=== PATIENT | male | born 1990 | race Caucasian/White ===

== ENCOUNTER 2020-11-27 09:05 | Outpatient (REF) | payer OTHER, SELFPAY ==
[2020-11-27 10:53] LABS: Alanine Aminotransferase 42 U/L (0-40); Albumin Level 4.3 g/dL (3.5-5.0); Alkaline Phosphatase 79 U/L (39-117); Anion Gap 13 (12-20); Aspartate Amino Transferase 23 U/L (5-37); Bilirubin Total 1.1 mg/dL (0.0-1.0); Blood Urea Nitrogen 13 mg/dL (9-16); Calcium 9.4 mg/dL (8.4-10.2); Carbon Dioxide 27 mmol/L (22-29); Chloride 104 mmol/L (96-108); Cholesterol 155 mg/dL; Estimated Glomerular Filt Rate > 60; Glucose Fasting 92 mg/dL (60-99); HDL Cholesterol 37 mg/dL; LDL Cholesterol Calculated 102 mg/dl; Sodium 140 mmol/L (135-145); Total Protein 7.3 g/dL (6.5-8.0); Triglycerides 82 mg/dL
[2020-12-01 14:06] LABS: Vitamin D 25-OH, D2 <4 ng/mL; Vitamin D 25-OH, D3 23 ng/mL; Vitamin D 25-OH, Total 23 ng/mL (30-100)
== END 2020-11-27 09:06 | disposition home or self-care (01) ==
LOC: HO.LAB 09:05
PROVIDERS: PCP Internal Medicine; Visit Provider Internal Medicine
DX: E11.9 Type 2 diabetes mellitus without complications (principal); E55.9 Vitamin D deficiency, unspecified; Z83.3 Family history of diabetes mellitus
CPT/HCPCS: 36415; 80053; 80061; 82306

== ENCOUNTER 2022-06-23 09:18 | Outpatient (REF) | payer OTHER, SELFPAY ==
[2022-06-23 09:41] LABS: MANUAL DIFF FLAG NO
[2022-06-23 09:54] LABS: Basophils Percent Auto 0.2 % (0-2); Eosinophils Percent Auto 0.5 % (0-4); Hematocrit 43.5 % (42.0-52.0); Hemoglobin 14.7 g/dl (14.0-18.0); Imm Gran Abs Auto 0.01 X10*3/uL (0.00-0.03); Imm Gran Pct Auto 0.2 % (0.0-0.4); Lymphocytes Absolute Auto 1.9 X10*3/uL (1.2-4.9); Lymphocytes Percent Auto 34.3 % (20-40); Mean Corpuscular HGB Conc 33.8 g/dl (31.0-36.0); Mean Corpuscular Hemoglobin 29.8 pg (27.0-33.0); Mean Corpuscular Volume 88.1 fL (80.0-98.0); Monocytes Absolute Auto 0.6 X10*3/uL (0.1-1.2); Monocytes Percent Auto 10.5 % (2-11); Neutrophils Absolute Auto 3.1 x10*3/uL (2.0-8.3); Neutrophils Percent Auto 54.3 % (45-73); Platelet Count 362 X10*3/uL (160-400); Red Blood Count 4.94 X10*6/uL (4.60-5.80); Red Cell Distribution Width 12.5 % (11.0-16.0); White Blood Count 5.6 X10*3/uL (4.8-10.8)
[2022-06-23 10:28] LABS: Alanine Aminotransferase 37 U/L (0-40); Albumin Level 4.4 g/dL (3.5-5.0); Alkaline Phosphatase 89 U/L (39-117); Anion Gap 14 (12-20); Aspartate Amino Transferase 21 U/L (5-37); Bilirubin Total 0.9 mg/dL (0.0-1.0); Blood Urea Nitrogen 13 mg/dL (9-16); Calcium 9.6 mg/dL (8.4-10.2); Carbon Dioxide 25 mmol/L (22-29); Chloride 104 mmol/L (96-108); Cholesterol 186 mg/dL; Estimated Glomerular Filt Rate > 60; Glucose Fasting 96 mg/dL (60-99); HDL Cholesterol 36 mg/dL; LDL Cholesterol Calculated 136 mg/dl; Potassium 4.4 mmol/L (3.3-5.1); Sodium 139 mmol/L (135-145); Total Protein 7.8 g/dL (6.5-8.0); Triglycerides 74 mg/dL
[2022-06-23 10:51] LABS: Thyroid Stimulating Hormone 1.12 uIU/mL (0.32-4.0); Vitamin D 25-OH Total 23.4 ng/mL (>30)
[2022-06-25 16:31] LABS: Lyme Abs Screen <0.90 index
== END 2022-06-23 09:19 | disposition home or self-care (01) ==
LOC: HO.LAB 09:18
PROVIDERS: PCP Internal Medicine; Visit Provider Internal Medicine
DX: Z00.00 Encounter for general adult medical examination without abnormal findings (principal); M25.50 Pain in unspecified joint; E55.9 Vitamin D deficiency, unspecified; E66.9 Obesity, unspecified; E78.5 Hyperlipidemia, unspecified
CPT/HCPCS: 36415; 80053; 80061; 82306; 84443; 85025; 86617; 86618

== ENCOUNTER 2023-03-16 08:20 | Outpatient (AMB) | payer OTHER, SELFPAY ==
--- NOTE | 2023-03-16 08:25 | A.OFFPC_ITS ---
Vital Signs 03/16/23 08:27 Height 5 ft 10 in Weight 224 lb BMI 32.1 BP 122/80 Blood Pressure Location Lt brachial Position Sitting Intake Visit Reasons: physical exam Intake Note: Patient here for an annual physical exam, routine lab request Square Shear Operator Required: No Accompanied by: Self / Same As Patient Allergies Sulfa (Sulfonamide Antibiotics) Allergy (Intermediate, Verified 03/16/23 08:45) swollen Medication List - Last Reconciled 03/16/23 by Chelsea Conrad MD bupropion HCl 300 mg PO QAM cholecalciferol (vitamin D3) 50 mcg PO DAILY Tobacco use date assessed: 03/16/23 Dental Screening Dental Screen Date: 03/16/23 Did you have a dental visit in the last 12 months?: Yes Did you have a dental problem in the last 6 months where you did not have access to dental care?: No Was dental information given to patient?: Patient has dentist HPI HPI Comments History of Present Illness Details This is a 32-year-old male with mild recurrent major depression that comes for his physical exam. Depression stable with bupropion. Denies any chest pain or shortness of breath. No fever or cough. [facility] Medical History Asperger syndrome Family history of diabetes mellitus Hypovitaminosis D Obese Surgical History No pertinent past surgical history Family History Father Diabetes Mother No problems noted. Maternal Grandmother Cancer Maternal Grandfather Colon cancer Maternal Uncle Stomach cancer Maternal Uncle Colon cancer Paternal Uncle No problems noted. Family/Other FH: mental illness Social History Housing: Apartment Alcohol intake: never Patient Tobacco Use Status: Never used Tobacco e-Cigarette/Vaping Use: Never Used Second Hand Smoke Exposure: No service: No Current occupational status: unemployed Cognitive needs: No Hearing needs: No Vision needs: No Questionnaire PHQ-9 Over the last 2 weeks, how often have you been bothered by any of the following problems? 1. Little interest or pleasure in doing things: not at all 2. Feeling down, depressed, or hopeless: not at all 3. Trouble falling or staying asleep, or sleeping too much: not at all 4. Feeling tired or having little energy: not at all 5. Poor appetite or overeating: not at all 6. Feeling bad about yourself - or that you are a failure or have let yourself or your family down: not at all 7. Trouble concentrating on things, such as reading the newspaper or watching television: not at all 8. Moving or speaking so slowly that other people could have noticed. Or the opposite - being so fidgety or restless that you have been moving around a lot more than usual: not at all 9. Thoughts that you would be better off or of hurting yourself in some way: not at all Total score: 0 Depression Screening Interpretation: Negative [id number] - PHQ-9 Billing: Yes Source: Developed by Drs. Tyrel Núñez, Abbi Ruiz, Neil Verde and colleagues, with an educational rosendo from [employer]. Thrive Questionnaire Date Thrive assessed: 03/16/23 I am a: Patient What is your living situation today?: I have a steady place to live Within the past 12 months, did the food you bought not last and you didn't have the money to get more?: Never true Within the past 12 months, did you worry whether your food would run out before you got money to buy more?: Never true Do you have trouble paying for medicines?: No Do you have trouble getting transportation to medical appointments?: No Do you have trouble paying your heating and electricity bill?: No Do you have trouble taking care of your child, family member or friend?: No Do you have trouble with day-to-day activities such as bathing, preparing meals, shopping, managing finances, etc.?: No Are you currently unemployed and looking for a job?: No Are you interested in more education?: No Please select the resources that you would like help with: None Currently or been in a relationship where the following occur: no concerns reported AUDIT C Alcohol Use Questionnaire (AUDIT-C) 1. How often do you have a drink containing alcohol?: Never Total Score: 0 Score Reviewed/Action Taken: No ANDREA-7 AMB Questionnaire ANDREA-7 Date ANDREA - 7 assessed: 02/17/22 Source: Developed by Drs. Tyrel Núñez, Abbi Ruiz, Neil Verde and colleagues, with an educational rosendo from [employer]. Review of Systems Const All systems reviewed & are unremarkable except as noted in HPI and below Eyes Reports no additional complaints, Denies change in vision and Denies other visual disturbances Card Denies chest pain at rest, Denies chest pain with activity, Denies edema, Denies irregular heart rhythm, Denies claudication, Denies dyspnea, Denies dyspnea on exertion, Denies orthopnea, Denies paroxysmal nocturnal dyspnea and Denies slow heart rate Resp Denies cough, Denies dyspnea and Denies dyspnea on exertion GI Denies abdominal pain, Denies change in bowel habits, Denies excessive flatus, Denies nausea and Denies vomiting Denies urinary hesitancy, Denies urinary incontinence and Denies urinary urgency Musc Denies abnormal gait, Denies atrophy, Denies deformity and Denies limited range of motion Skin/Breast Denies bleeding lesions, Denies changing lesions and Denies rash Neuro Denies abnormal gait and Denies lack of coordination Physical exam (Primary Care) Vital Signs: Last Vital Signs BP 122/80 03/16/23 08:27 BMI result Body Mass Index 32.1 Tobacco/Smoking Status: Tobacco use Status Tobacco use date assessed 03/16/23 03/16/23 08:33 Patient Tobacco Use Status Never used Tobacco 03/16/23 08:33 e-Cigarette/Vaping Use Never Used 03/16/23 08:33 PHQ-9: PHQ-9 Score PHQ-9: Total score 0 03/16/23 08:33 Depression Screening Interpretation: Negative Thrive Assessment: Date of Thrive Assessment Date Thrive assessed 03/16/23 03/16/23 08:33 Currently or been in a relationship where the following occur: no concerns reported Const Orientation/consciousness: patient oriented x3 HENMT Head: Yes normal to inspection, Yes normocephalic and Yes atraumatic Ears: external ears normal Eyes General: appearance normal, both eyes and all related structures Eyelids: Yes eyelids normal Conjunctivae: conjunctivae normal Neck Neck: Yes normal visual inspection and Yes supple Resp Effort & Inspection: normal respiratory effort Auscultation: clear to auscultation bilaterally Cardio Jugular venous distension: no JVD Rate: regular rate Rhythm: regular rhythm Heart sounds: S1 normal heart sound present and S2 normal heart sound present GI Inspection: Yes normal to inspection Palpation (GI): Soft to palpation and nontender Auscultation: normal bowel sounds Skin General skin exam: no rashes or lesions noted Neuro General: patient oriented x3 and no focal motor deficits Extrem General: Yes full ROM Psych Appearance: grossly normal Assessment and Plan Assessment & Plan (1) Adult general medical exam: Code(s): Z00.00 - Encounter for general adult medical examination without abnormal findings Plan: Repeat in a year (2) Mild recurrent major depression: Code(s): F33.0 - Major depressive disorder, recurrent, mild Plan: Continue bupropion Orders: Orders Vitamin B12 and Folate Today E53.8 - Deficiency of other specified B group vitamins Comprehensive [place]. Panel Fast Today Z00.00 - Encounter for general adult medical examination without abnormal findings Lipid Panel Today Z00.00 - Encounter for general adult medical examination without abnormal findings Thyroid Stimulating Hormone Today E66.9 - Obesity, unspecified Vitamin D 25-OH Total Today E55.9 - Vitamin D deficiency, unspecified Complete Blood Count Auto Diff Today E66.9 - Obesity, unspecified Coding Level of Care Code Est Pt Prev Care [id number]([id number]) Diagnoses Adult general medical exam Z00.00 Mild recurrent major depression F33.0 Time Spent (min) 30
[2023-03-16 08:27] VITALS: BP 122/80; BMI 32.1
== END 2023-03-16 08:52 | disposition home or self-care (01) ==
PROVIDERS: PCP Internal Medicine; Visit Provider Internal Medicine
DX: Z00.00 Encounter for general adult medical examination without abnormal findings (principal); F33.0 Major depressive disorder, recurrent, mild
CPT/HCPCS: 99395

== ENCOUNTER 2023-10-10 13:48 | Emergency (ER) | payer OTHER, SELFPAY ==
--- NOTE | ~2023-10-10 | US_ITS ---
EXAMINATION: US ABDOMEN LIMITED CLINICAL INFORMATION: Epigastric pain. Question cholecystitis.. COMPARISON: None available. TECHNIQUE: Real-time imaging of the gallbladder FINDINGS: GALLBLADDER: Normal. The gallbladder is physiologically distended without evidence of stones, sludge, polyps, wall thickening or pericholecystic fluid. COMMON BILE DUCT: Normal in caliber measuring 0.2 cm in diameter. US/US abdomen limited IMPRESSION: Normal gallbladder.
--- NOTE | ~2023-10-10 | XR_ITS ---
EXAMINATION: XR CHEST CLINICAL INFORMATION: Chest pain COMPARISON: None available. TECHNIQUE: Frontal view of the chest was obtained. FINDINGS: No significant abnormality is noted involving the heart, lungs, mediastinum, bony thorax or soft tissues. XR/XR chest 1V IMPRESSION: Unremarkable examination.
[2023-10-10 13:55] VITALS: BP 125/81; PULSE 75; RESP 17; TEMP 36.1; O2SAT 99; BMI 32.8
--- NOTE | 2023-10-10 14:02 | ECG_ITS ---
Test Reason : chest pain Blood Pressure : / mmHG Vent. Rate : 075 BPM Atrial Rate : 075 BPM P-R Int : 166 ms QRS Dur : 094 ms QT Int : 368 ms P-R-T Axes : 064 033 043 degrees QTc Int : 410 ms Normal sinus rhythm Normal ECG No previous ECGs available Referred By: Fantasma Ochoa Electronically Signed By:LIAT SAN
--- NOTE | 2023-10-10 14:04 | ED_ITS ---
HPI - General Adult General Chief complaint: General Medical Stated complaint: Abd pain, high BP Time Seen by Provider: 10/10/23 23:20 Source: patient, family and old records reviewed Mode of arrival: ambulatory Limitations: no limitations History of Present Illness HPI narrative: 33 yo male with depression, anxiety, aspergers was eating breakfast this AM when he decided to check his BS it was 160 and his BP was 140/80 he had no chest pain, shortness of breath. He did feel heart racing and checked it HR was 80s. He notes that he is stressed out about his father recently having a medical issue. This episode happened at 11am today. Due to recent stress decided to put himself back on wellbutrin this AM and took 300mg complaint: BS and BP issue Onset (ago): day(s) (today 11am ) Location: head and chest Radiation: non-radiation Severity: mild Relieving factors: none Exacerbating factors: none Associated symptoms: denies other symptoms Treatments prior to arrival: none Related Data Previous Rx's Medication Instructions Recorded cholecalciferol (vitamin D3) 50 50 mcg PO DAILY #90 caps 03/06/21 mcg (2,000 unit) capsule bupropion HCl 300 mg 24 hr tablet, 300 mg PO QAM #90 tabs 08/12/21 extended release Allergies Allergy/AdvReac Type Severity Reaction Status Date / Time Sulfa (Sulfonamide Allergy Intermediate swollen Verified 03/16/23 08:45 Antibiotics) Review of Systems 2 Review of Systems: Constitutional : No Fever, No Chills, No Fatigue ENT/Mouth : No sore throat, No Rhinorrhea Eyes: No Eye Pain, No Swelling, No Redness Cardiovascular : No Chest Pain, No SOB, No Dyspnea on Exertion, pos palps Respiratory : No Cough, No Sputum Gastrointestinal : No Nausea, No Vomiting, No Diarrhea, No abdominal Pain Genitourinary : No Dysuria, No Urinary Frequency, No Hematuria, Musculoskeletal : No joint pain, No Myalgias, No Joint Swelling Skin : No Skin Lesions, No rash Neuro : No Weakness, No Numbness, No Dizziness, no Headache Psych : No Anxiety/Panic, No Depression Heme/Lymph: No Bruising, No Bleeding,No Lymphadenopathy Endocrine : No Polyuria, No Polydipsia All other systems reviewed and are negative PMFSH Past Medical History Medical History Asperger syndrome Family history of diabetes mellitus Hypovitaminosis D Obese Surgical History No pertinent past surgical history Family History Family History Father Diabetes Mother No problems noted. Maternal Grandmother Cancer Maternal Grandfather Colon cancer Maternal Uncle Stomach cancer Maternal Uncle Colon cancer Paternal Uncle No problems noted. Family/Other FH: mental illness Social History Social History Housing: Apartment Alcohol intake: never Patient Tobacco Use Status: Never used Tobacco e-Cigarette/Vaping Use: Never Used Second Hand Smoke Exposure: No service: No Current occupational status: unemployed Cognitive needs: No Hearing needs: No Vision needs: No Physical Exam ED Vital Signs: Vital Signs - 24 hr 10/10/23 13:55 10/10/23 19:13 Temperature 97.0 F 96.8 F Pulse Rate 75 73 Respiratory Rate 17 18 Blood Pressure 125/81 130/83 Pulse Oximetry 99 98 Oxygen Delivery Method Room Air Room Air BMI result Body Mass Index 32.8 Appearance: Alert. Oriented X3. No acute distress. Eyes: Pupils equal, round and reactive to light. ENT: Pharynx normal. Neck: Normal inspection. Neck supple. CVS: Normal heart rate and rhythm. Pulses normal. Respiratory: No respiratory distress. Breath sounds normal. Abdomen: Soft and non-tender. Skin: Skin warm and dry. Normal skin color. Normal skin turgor. Extremities: No lower extremity edema. no calf ttp Neuro: Oriented X 3. No motor deficit. No sensory deficit. Course Course Course Narrative: RME: 33-year-old male presents ED for epigastric and chest pain since last night with some nausea. Patient denies any shortness of breath, leg swelling, calf pain, coughing up blood, fever, chills, or trauma. EKG, labs, chest x-ray, and ultrasound ordered. Medical Decision Making Medical Decision Making MDM Narrative: 33 yo male with PMH of depression, anxiety, asperger notes a medical issue just happened with his dad so he is worried - this AM was eating breakfast and checked his BS it was 160 and BP was 140 he had no symptoms. His heart was racing but he checked it and it was 80s. He did start wellbutrin today and it has been a while since he took it - started it at 300mg. At this time labs, EKG, trop, BS and BP normal, US normal for triage, exam benign. Will tell him to hold his wellbutrin and call his PCP in AM. Doubt ACS, diabetes, he is PERC negative doubt VTE. Suspect med or stress reaction Differential Diagnosis Differential Diagnoses: The differential diagnosis associated with the presentation includes med or stress reaction Admission/Observation Consideration of admission/observation: Escalation of care including admission/observation considered work up negative well butrin taken over 12 hours ago VS stable, EKG normal can be DC home Lab Data MDM Lab Attestation statement: I reviewed the patient's lab results. 10/10/23 16:11 10/10/23 16:11 Labs: Lab Results 10/10/23 10/10/23 Range/Units 16:11 19:17 WBC 6.9 (4.8-10.8) X10*3/uL RBC 5.19 (4.60-5.80) X10*6/uL Hgb 15.8 (14.0-18.0) g/dl Hct 45.7 (42.0-52.0) % MCV 88.1 (80.0-98.0) fL MCH 30.4 (27.0-33.0) pg MCHC 34.6 (31.0-36.0) g/dl RDW 12.7 (11.0-16.0) % Plt Count 316 (160-400) X10*3/uL MPV 9.3 L (9.4-12.4) fL Immature Gran % (Auto) 0.3 (0.0-0.4) % Neut % (Auto) 63.1 (45-73) % Lymph % (Auto) 26.4 (20-40) % [place] % (Auto) 9.1 (2-11) % Eos % (Auto) 1.0 (0-4) % Baso % (Auto) 0.1 (0-2) % Lymph # (Auto) 1.8 (1.2-4.9) X10*3/uL [place] # (Auto) 0.6 (0.1-1.2) X10*3/uL Eos # (Auto) 0.1 (0.0-0.4) X10*3/uL Baso # (Auto) 0.0 (0.0-0.2) X10*3/uL Abs Immat Gran (auto) 0.02 (0.00-0.03) X10*3/uL Absolute Neuts (auto) 4.4 (2.0-8.3) x10*3/uL Absolute Nucleated RBC 0.000 (0.0-0.012) X10*3/uL Nucleated RBC % (auto) 0.0 (0.0-0.2) /100WBC PT 12.2 (11.1-13.3) SEC INR 1.0 (0.9-1.1) APTT 32.8 (26.0-36.8) SEC Sodium 139 (135-145) mmol/L Potassium 3.8 (3.3-5.1) mmol/L Chloride 105 (96-108) mmol/L Carbon Dioxide 26 (22-29) mmol/L Anion Gap 12 (12-20) BUN 14 (9-16) mg/dL Creatinine 1.04 (0.5-1.4) mg/dL Estim Creat Clear Calc 127.9 Estimated GFR > 60 POC Glucose 112 (60-115) mg/dL Random Glucose 88 (60-115) mg/dL Calcium 9.7 (8.4-10.2) mg/dL Total Bilirubin 0.7 (0.0-1.0) mg/dL AST 19 (5-37) U/L ALT 41 H (0-40) U/L Alkaline Phosphatase 90 (39-117) U/L Troponin I High Sens < 2.7 (<3.5-35.0) ng/L Total Protein 8.3 H (6.5-8.0) g/dL Albumin 4.5 (3.5-5.0) g/dL Lipase 12 (8-78) U/L Urine Color Dark Yellow Urine Appearance Clear Urine pH 6.5 (5.0-9.0) Ur Specific [place] >= 1.030 H (1.005-1.025) Urine Protein Trace (Neg-Trace) mg/dL Urine Glucose (UA) Negative (Negative) mg/dL Urine Ketones Trace (Negative) mg/dL Urine Blood Negative (Negative) Urine Nitrite Negative (Negative) Ur Leukocyte Esterase Negative (Negative) Independent Interpretation I performed an independent interpretation of an: EKG, Plain X-Ray (normal ) and Ultrasound (no acute findings) Interpretation: Rate: 75 Rhythm: NSR [place]: normal Normal P waves. Normal DIANE. Normal QRS complex. ST T wave : normal no LOIS qTC: normal prior studies: no acute ischemia The study has been interpreted contemporaneously by me. . Radiology Impression Discussion of test interpretation with radiology: I have reviewed the radiologist's reading. Independent Historian Clinical information obtained from an independent historian. History obtained from or confirmed by: Parent External Record Review External record reviewed: Inpatient record Discharge Plan Discharge Clinical Impression: Stress reaction Patient Disposition: Home, Self-Care Instructions: Stress (ED) Additional Instructions: your labs were normal including chest xray, ultrasound of abdomen, ekg - please talk to your doctor about restarting wellbutrin. starting at 300mg is too high. call in the AM return for any worsening symptoms or concerns. your blood pressure has been stable and normal here. dario an?lisis fueron normales, incluida la radiograf?a de t?rax, la ecograf?a del abdomen y el electrocardiograma; hable con burrell m?dico sobre la posibilidad de reiniciar Wellbutrin. comenzar con 300 mg es demasiado alto. llama por la ma?chelsea Regrese si tiene alg?n s?ntoma o inquietud que empeore. Burrell presi?n arterial ledbetter estado estable y normal aqu?. Prescriptions: No Action cholecalciferol (vitamin D3) 50 mcg (2,000 unit) capsule 50 mcg PO DAILY Qty: 90 0RF bupropion HCl 300 mg tablet extended release 24 hr 300 mg PO QAM Qty: 90 2RF Interventions: ED Discharge Assessment Last Done: 10/11/23 00:05 Discharge Date/Time: 10/11/23 00:08 Print Language: Syriac
[2023-10-10 16:29] LABS: MANUAL DIFF FLAG NO
[2023-10-10 16:31] LABS: Appearance Urine Clear; Color Urine Dark Yellow; Glucose Urine UA Negative (Negative); Leukocyte Esterase Urine Negative (Negative); Nitrite Urine Negative (Negative); PH 6.5 (5.0-9.0); Specific Gravity - Urine >= 1.030 (1.005-1.025); Urine Blood Negative (Negative); Urine Ketones Trace mg/dL (Negative); Urine Protein Trace mg/dL (Neg-Trace)
[2023-10-10 16:36] LABS: Basophils Percent Auto 0.1 % (0-2); Eosinophils Absolute Auto 0.1 X10*3/uL (0.0-0.4); Hematocrit 45.7 % (42.0-52.0); Hemoglobin 15.8 g/dl (14.0-18.0); Imm Gran Abs Auto 0.02 X10*3/uL (0.00-0.03); Imm Gran Pct Auto 0.3 % (0.0-0.4); Lymphocytes Absolute Auto 1.8 X10*3/uL (1.2-4.9); Lymphocytes Percent Auto 26.4 % (20-40); Mean Corpuscular HGB Conc 34.6 g/dl (31.0-36.0); Mean Corpuscular Hemoglobin 30.4 pg (27.0-33.0); Mean Corpuscular Volume 88.1 fL (80.0-98.0); Mean Platelet Volume 9.3 fL (9.4-12.4); Monocytes Absolute Auto 0.6 X10*3/uL (0.1-1.2); Monocytes Percent Auto 9.1 % (2-11); Neutrophils Absolute Auto 4.4 x10*3/uL (2.0-8.3); Neutrophils Percent Auto 63.1 % (45-73); Platelet Count 316 X10*3/uL (160-400); Prothrombin Time 12.2 SEC (11.1-13.3); Red Blood Count 5.19 X10*6/uL (4.60-5.80); Red Cell Distribution Width 12.7 % (11.0-16.0); White Blood Count 6.9 X10*3/uL (4.8-10.8)
[2023-10-10 16:38] LABS: Partial Thromboplastin Time 32.8 SEC (26.0-36.8)
[2023-10-10 16:43] LABS: Alanine Aminotransferase 41 U/L (0-40); Albumin Level 4.5 g/dL (3.5-5.0); Alkaline Phosphatase 90 U/L (39-117); Anion Gap 12 (12-20); Aspartate Amino Transferase 19 U/L (5-37); Bilirubin Total 0.7 mg/dL (0.0-1.0); Blood Urea Nitrogen 14 mg/dL (9-16); Calcium 9.7 mg/dL (8.4-10.2); Carbon Dioxide 26 mmol/L (22-29); Chloride 105 mmol/L (96-108); Creatinine Clr Calc Pharmacy 127.9; Estimated Glomerular Filt Rate > 60; Glucose Random 88 mg/dL (60-115); Lipase 12 U/L (8-78); Potassium 3.8 mmol/L (3.3-5.1); Sodium 139 mmol/L (135-145); Total Protein 8.3 g/dL (6.5-8.0)
[2023-10-10 16:52] LABS: Troponin-I High Sensitivity < 2.7 ng/L (<3.5-35.0)
[2023-10-10 19:13] VITALS: BP 130/83; PULSE 73; RESP 18; TEMP 36; O2SAT 98
[2023-10-10 19:23] LABS: Glucose, Whole Blood 112 mg/dL (60-115)
[2023-10-11] VITALS: BP 121/79; PULSE 60; RESP 16; TEMP 36.3; O2SAT 95
== END 2023-10-11 00:08 | disposition home or self-care (01) ==
PROVIDERS: Physician Assistant; Emergency Provider Emergency Medicine; PCP Internal Medicine
DX: F43.0 Acute stress reaction (principal); R10.9 Unspecified abdominal pain; R10.13 Epigastric pain; R07.89 Other chest pain; R11.2 Nausea with vomiting, unspecified; Z79.899 Other long term (current) drug therapy
CPT/HCPCS: 36415; 71045; 76705; 80053; 81003; 82947; 83690; 84484; 85025; 85610; 85730; 93005; 99284

== ENCOUNTER → 2023-10-10 14:02 | Outpatient (BNV) | payer OTHER, SELFPAY | PROVIDERS: Emergency Provider Emergency Medicine; PCP Internal Medicine; Visit Provider Internal Medicine | DX: R07.9 Chest pain, unspecified (principal) | CPT/HCPCS: 93010 ==

== ENCOUNTER 2023-10-19 12:26 | Outpatient (AMB) | payer OTHER, SELFPAY ==
--- NOTE | 2023-10-19 12:37 | A.OFFPC_ITS ---
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 Accompanied by: Mother Allergies Sulfa (Sulfonamide Antibiotics) Allergy (Intermediate, Verified 10/19/23 12:47) swollen Medication List - Last Reconciled 10/19/23 by Chelsea Conrad MD bupropion HCl 300 mg PO QAM cholecalciferol (vitamin D3) 50 mcg PO DAILY Tobacco use date assessed: 10/19/23 Dental Screening Dental Screen Date: 10/19/23 Did you have a dental visit in the last 12 months?: No Did you have a dental problem in the last 6 months where you did not have access to dental care?: No Was dental information given to patient?: Patient has dentist HPI HPI Comments History of Present Illness Details This is a 33-year-old male with mild major depression and low vitamin-D that comes today accompanied by mother has hospital discharge follow-up with discharge date 10/10/2023 due to a stress reaction. He stop taking bupropion 300 mg few months ago and the past month he has been having a lot of stress due to many people sick around him and father had COVID-19 complications and was hospitalized for 15 days therefore he restarted to take the bupropion 300 mg and started to have headaches, abdominal pain blood pressure elevated to 140/80 and blood sugar elevated to 160 as well as chest pain. Currently he does not take bupropion and feels markedly improved. Has new counselor and is on a waiting list to see Psychiatry. I will restart him on bupropion 150 mg once a day. On vitamin-D supplements for his low vitamin-D. [facility] Medical History (Updated 10/19/23 @ 13:11 by Chelsea Conrad MD) Obese Family history of diabetes mellitus Hypovitaminosis D Asperger syndrome Surgical History No pertinent past surgical history Family History Father Diabetes Mother No problems noted. Maternal Grandmother Cancer Maternal Grandfather Colon cancer Maternal Uncle Stomach cancer Maternal Uncle Colon cancer Paternal Uncle No problems noted. Family/Other FH: mental illness Social History Housing: Apartment Alcohol intake: never Patient Tobacco Use Status: Never used Tobacco e-Cigarette/Vaping Use: Never Used Second Hand Smoke Exposure: No service: No Current occupational status: unemployed Cognitive needs: No Hearing needs: No Vision needs: Yes Questionnaire PHQ-9 Over the last 2 weeks, how often have you been bothered by any of the following problems? 1. Little interest or pleasure in doing things: several days 2. Feeling down, depressed, or hopeless: several days 3. Trouble falling or staying asleep, or sleeping too much: not at all 4. Feeling tired or having little energy: not at all 5. Poor appetite or overeating: nearly every day 6. Feeling bad about yourself - or that you are a failure or have let yourself or your family down: not at all 7. Trouble concentrating on things, such as reading the newspaper or watching television: several days 8. Moving or speaking so slowly that other people could have noticed. Or the opposite - being so fidgety or restless that you have been moving around a lot more than usual: not at all 9. Thoughts that you would be better off or of hurting yourself in some way: not at all Total score: 6 Depression Screening Interpretation: Positive Depression Screening Follow-up: Existing condition and New Medication prescribed Depression Screening Done: Yes 78610 - PHQ-9 Billing: Yes Source: Developed by Drs. Tyrel Núñez, Abbi Ruiz, Neil Verde and colleagues, with an educational rosendo from [employer]. Thrive Questionnaire Date Thrive assessed: 10/19/23 I am a: Patient What is your living situation today?: I have a steady place to live Within the past 12 months, did the food you bought not last and you didn't have the money to get more?: Never true Within the past 12 months, did you worry whether your food would run out before you got money to buy more?: Never true Do you have trouble paying for medicines?: No Do you have trouble getting transportation to medical appointments?: No Do you have trouble paying your heating and electricity bill?: No Do you have trouble taking care of your child, family member or friend?: No Do you have trouble with day-to-day activities such as bathing, preparing meals, shopping, managing finances, etc.?: No Are you currently unemployed and looking for a job?: No Are you interested in more education?: No Please select the resources that you would like help with: None Currently or been in a relationship where the following occur: no concerns reported THRIVE Score: 0 AUDIT C Alcohol Use Questionnaire (AUDIT-C) 1. How often do you have a drink containing alcohol?: Never Total Score: 0 ANDREA-7 AMB Questionnaire ANDREA-7 Date ANDREA - 7 assessed: 10/19/23 Feeling nervous, anxious, or on edge: 1 = Several days Not being able to stop or control worryin = Several days Worrying too much about different things: 1 = Several days Trouble relaxin = Several days Being so restless that it is hard to sit still: 0 = Not at all Becoming easily annoyed or irritable: 1 = Several days Feeling afraid as if something awful might happen: 1 = Several days Total ANDREA-7 score (0-4 normal; 5-9 mild; 10-14 moderate; 15-21 severe): 6 Source: Developed by Drs. Tyrel Núñez, Abbi Ruiz, Neil Verde and colleagues, with an educational rosendo from [employer]. ANDREA-7 Assessment Billing ANDREA-7 Assessment Tool: ANDREA-7 Assessment 32878 Review of Systems Const All systems reviewed & are unremarkable except as noted in HPI and below Eyes Reports no additional complaints, Denies change in vision and Denies other visual disturbances Card Denies chest pain at rest, Denies chest pain with activity, Denies edema, Denies irregular heart rhythm, Denies claudication, Denies dyspnea, Denies dyspnea on exertion, Denies orthopnea, Denies paroxysmal nocturnal dyspnea and Denies slow heart rate Resp Denies cough, Denies dyspnea and Denies dyspnea on exertion GI Denies abdominal pain, Denies change in bowel habits, Denies excessive flatus, Denies nausea and Denies vomiting Denies urinary hesitancy, Denies urinary incontinence and Denies urinary urgency Musc Denies abnormal gait, Denies atrophy, Denies deformity and Denies limited range of motion Skin/Breast Denies bleeding lesions, Denies changing lesions and Denies rash Neuro Denies abnormal gait, Denies behavioral changes and Denies lack of coordination Psych Denies behavioral changes Physical exam (Primary Care) Vital Signs: Last Vital Signs BP 118/74 10/19/23 12:38 BMI result Body Mass Index 32.1 Tobacco/Smoking Status: Tobacco use Status Tobacco use date assessed 10/19/23 10/19/23 12:43 Patient Tobacco Use Status Never used Tobacco 10/19/23 12:43 e-Cigarette/Vaping Use Never Used 10/19/23 12:43 PHQ-9: PHQ-9 Score PHQ-9: Total score 6 10/19/23 12:49 Depression Screening Interpretation: Positive Depression Screening Follow-up: Existing condition and New Medication prescribed Thrive Assessment: Date of Thrive Assessment Date Thrive assessed 10/19/23 10/19/23 12:43 Currently or been in a relationship where the following occur: no concerns reported Eyes General: appearance normal, both eyes and all related structures Eyelids: Yes eyelids normal Conjunctivae: conjunctivae normal Neck Neck: Yes normal visual inspection and Yes supple Resp Effort & Inspection: normal respiratory effort Auscultation: clear to auscultation bilaterally Cardio Jugular venous distension: no JVD Rate: regular rate Rhythm: regular rhythm Heart sounds: S1 normal heart sound present and S2 normal heart sound present Extrem General: Yes full ROM Assessment and Plan Assessment & Plan (1) Hospital discharge follow-up: Code(s): Z09 - Encounter for follow-up examination after completed treatment for conditions other than malignant neoplasm Plan: Discharge date 10/10/2023 due to a stress reaction and feels markedly improved. Labs and EKG were within normal limits. (2) Mild recurrent major depression: Code(s): F33.0 - Major depressive disorder, recurrent, mild Plan: Restart bupropion 150 mg once a day. Continue counseling. (3) Hypovitaminosis D: Code(s): E55.9 - Vitamin D deficiency, unspecified Plan: Continue vitamin-D supplements. (4) Stress reaction: Code(s): F43.0 - Acute stress reaction Plan: Feels markedly improved. Orders: Orders Comprehensive [place]. Panel Fast Today E66.9 - Obesity, unspecified Vitamin D 25-OH Total Today E55.9 - Vitamin D deficiency, unspecified Lipid Panel Today E66.9 - Obesity, unspecified Medications: New bupropion HCl 150 mg PO QAM 90 days 90 tabs 0RF Discontinued bupropion HCl Discontinued Reason: Patient Completed Course 300 mg PO QAM 90 tabs 2RF Coding Level of Care Code TCM Mod MDM <= 14 Days Diagnoses Hospital discharge follow-up Z09 Mild recurrent major depression F33.0 Hypovitaminosis D E55.9 Stress reaction F43.0 Additional Codes ANDREA-7 Assessment Billing - ANDREA-7 Assessment Tool: ANDREA-7 Assessment [id number] ([id number]) Time Spent (min) 23
[2023-10-19 12:38] VITALS: BP 118/74; BMI 32.1
== END 2023-10-19 12:59 | disposition home or self-care (01) ==
PROVIDERS: PCP Internal Medicine; Visit Provider Internal Medicine
DX: F43.0 Acute stress reaction (principal); F33.0 Major depressive disorder, recurrent, mild; E55.9 Vitamin D deficiency, unspecified
CPT/HCPCS: 99213

== ENCOUNTER 2023-11-15 09:11 | Outpatient (REF) | payer OTHER, SELFPAY ==
[2023-11-15 11:39] LABS: Alanine Aminotransferase 45 U/L (0-40); Albumin Level 4.3 g/dL (3.5-5.0); Alkaline Phosphatase 85 U/L (39-117); Anion Gap 9 (12-20); Aspartate Amino Transferase 22 U/L (5-37); Bilirubin Total 0.6 mg/dL (0.0-1.0); Blood Urea Nitrogen 15 mg/dL (9-16); Calcium 9.7 mg/dL (8.4-10.2); Carbon Dioxide 29 mmol/L (22-29); Chloride 108 mmol/L (96-108); Cholesterol 173 mg/dL (<200); Estimated Glomerular Filt Rate > 60; Glucose Fasting 87 mg/dL (60-99); HDL Cholesterol 42 mg/dL (>40); LDL Cholesterol Calculated 118 mg/dL (<100); Potassium 3.9 mmol/L (3.3-5.1); Sodium 142 mmol/L (135-145); Total Protein 7.8 g/dL (6.5-8.0); Triglycerides 69 mg/dL (<150)
[2023-11-15 11:56] LABS: Vitamin D 25-OH Total 24.4 ng/mL (>30)
== END 2023-11-15 09:12 | disposition home or self-care (01) ==
LOC: HO.LAB 09:11
PROVIDERS: PCP Internal Medicine; Visit Provider Internal Medicine
DX: E66.9 Obesity, unspecified (principal); E55.9 Vitamin D deficiency, unspecified
CPT/HCPCS: 36415; 80053; 80061; 82306

== ENCOUNTER 2023-12-07 17:17 | Outpatient (AMB) | payer OTHER, SELFPAY ==
[2023-12-07 17:26] VITALS: BP 112/70; BMI 32.1
--- NOTE | 2023-12-07 17:26 | MHC.PC.OV ---
Vital Signs 12/07/23 17:26 Height 5 ft 11 in Weight 230 lb BMI 32.1 BP 112/70 Blood Pressure Location Lt brachial Position Sitting Intake Visit Reasons: Follow up Intake Note: Patient here for a follow up Post Form Remover Required: No Accompanied by: Mother Allergies Sulfa (Sulfonamide Antibiotics) Allergy (Intermediate, Verified 12/07/23 17:44) swollen Medication List - Last Reconciled 12/07/23 by Chelsea Conrad MD bupropion HCl 150 mg PO QAM 90 days cholecalciferol (vitamin D3) 50 mcg PO DAILY Tobacco use date assessed: 10/19/23 Dental Screening Dental Screen Date: 10/19/23 HPI HPI Comments History of Present Illness Details This is a 33-year-old male with mild recurrent major depression, obesity and low vitamin-D that comes accompanied by mother complaining of sore throat that started yesterday. No fever or lymphadenopathy. Depression stable with bupropion. He is obese with a BMI of 32.1 and was advised to do diet and exercise to reach BMI goal less than 30. On vitamin-D supplements for his low vitamin-D. I will start him on antibiotics for his upper respiratory infection. [facility] Medical History (Updated 12/07/23 @ 17:54 by Chelsea Conrad MD) Obese Family history of diabetes mellitus Hypovitaminosis D Asperger syndrome Surgical History No pertinent past surgical history Family History Father Diabetes Mother No problems noted. Maternal Grandmother Cancer Maternal Grandfather Colon cancer Maternal Uncle Stomach cancer Maternal Uncle Colon cancer Paternal Uncle No problems noted. Family/Other FH: mental illness Social History Housing: Apartment Alcohol intake: never Patient Tobacco Use Status: Never used Tobacco e-Cigarette/Vaping Use: Never Used Second Hand Smoke Exposure: No service: No Current occupational status: unemployed Cognitive needs: No Hearing needs: No Vision needs: Yes Questionnaire Thrive Questionnaire Date Thrive assessed: 10/19/23 ANDREA-7 AMB Questionnaire ANDREA-7 Date ANDREA - 7 assessed: 10/19/23 Source: Developed by Drs. Tyrel Núñez, Abbi Ruiz, Neil Verde and colleagues, with an educational rosendo from [employer]. Review of Systems Const All systems reviewed & are unremarkable except as noted in HPI and below Eyes Reports no additional complaints, Denies change in vision and Denies other visual disturbances Card Denies chest pain at rest, Denies chest pain with activity, Denies edema, Denies irregular heart rhythm, Denies claudication, Denies dyspnea, Denies dyspnea on exertion, Denies orthopnea, Denies paroxysmal nocturnal dyspnea and Denies slow heart rate Resp Denies cough, Denies dyspnea and Denies dyspnea on exertion Physical exam (Primary Care) Vital Signs: Last Vital Signs BP 112/70 12/07/23 17:26 BMI result Body Mass Index 32.1 Tobacco/Smoking Status: Tobacco use Status Tobacco use date assessed 10/19/23 12/07/23 17:30 Patient Tobacco Use Status Never used Tobacco 12/07/23 17:30 e-Cigarette/Vaping Use Never Used 12/07/23 17:30 Thrive Assessment: Date of Thrive Assessment Date Thrive assessed 10/19/23 12/07/23 17:30 Resp Effort & Inspection: normal respiratory effort Auscultation: clear to auscultation bilaterally Cardio Jugular venous distension: no JVD Rate: regular rate Rhythm: regular rhythm Heart sounds: S1 normal heart sound present and S2 normal heart sound present Extrem General: Yes full ROM Assessment and Plan Assessment & Plan (1) Mild recurrent major depression: Code(s): F33.0 - Major depressive disorder, recurrent, mild Plan: Continue bupropion. (2) Hypovitaminosis D: Code(s): E55.9 - Vitamin D deficiency, unspecified Plan: Continue vitamin-D supplements. (3) URI (upper respiratory infection): Code(s): J06.9 - Acute upper respiratory infection, unspecified Plan: Start amoxicillin. (4) Obesity (BMI 30.0-34.9): Code(s): E66.9 - Obesity, unspecified Plan: Start diet and exercise. BMI goal is less than 30. Medications: New amoxicillin 500 mg PO BID 7 days 14 tabs 0RF Changed From cholecalciferol (vitamin D3) 50 mcg PO DAILY 90 caps 0RF To cholecalciferol (vitamin D3) 50 mcg PO DAILY 90 days 90 caps 3RF Refilled bupropion HCl 150 mg PO QAM 90 days 90 tabs 1RF Coding Level of Care Code Est Pt Level 4 (15046) Diagnoses Mild recurrent major depression F33.0 Hypovitaminosis D E55.9 URI (upper respiratory infection) J06.9 Obesity (BMI 30.0-34.9) E66.9 Time Spent (min) 20
== END 2023-12-07 17:50 | disposition home or self-care (01) ==
PROVIDERS: PCP Internal Medicine; Visit Provider Internal Medicine
DX: J06.9 Acute upper respiratory infection, unspecified (principal); F33.0 Major depressive disorder, recurrent, mild; E66.9 Obesity, unspecified; Z68.32 Body mass index [BMI] 32.0-32.9, adult; E55.9 Vitamin D deficiency, unspecified
CPT/HCPCS: 99214

== ENCOUNTER 2024-03-17 08:11 | Outpatient (REF) | payer OTHER, SELFPAY ==
[2024-03-20 00:14] LABS: TS Negative Control Passed; TS Panel A 1; TS Panel B 0; TS Positive Control Passed; TSpotTB Negative (Negative)
== END 2024-03-17 08:12 | disposition home or self-care (01) ==
LOC: HO.LAB 08:11
PROVIDERS: PCP Internal Medicine; Visit Provider Internal Medicine
DX: Z11.1 Encounter for screening for respiratory tuberculosis (principal)
CPT/HCPCS: 36415; 86481

== ENCOUNTER 2024-03-20 09:02 | Outpatient (AMB) | payer OTHER, SELFPAY ==
[2024-03-20 09:14] VITALS: BP 118/62; PULSE 68; O2SAT 95; BMI 32.5
--- NOTE | 2024-03-20 09:14 | A.OFFPC_ITS ---
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 Depression stable with bupropion. He denies any acute complaints. [facility] Medical History Obese Family history of diabetes mellitus Hypovitaminosis D Asperger syndrome Surgical History No pertinent past surgical history Family History Father Diabetes Mother No problems noted. Maternal Grandmother Cancer Maternal Grandfather Colon cancer Maternal Uncle Stomach cancer Maternal Uncle Colon cancer Paternal Uncle No problems noted. Family/Other FH: mental illness Social History Housing: Apartment Alcohol intake: never Patient Tobacco Use Status: Never used Tobacco e-Cigarette/Vaping Use: Never Used Second Hand Smoke Exposure: No service: No Current occupational status: unemployed Cognitive needs: No Hearing needs: No Vision needs: Yes Questionnaire PHQ-9 Over the last 2 weeks, how often have you been bothered by any of the following problems? 1. Little interest or pleasure in doing things: several days 2. Feeling down, depressed, or hopeless: several days 3. Trouble falling or staying asleep, or sleeping too much: not at all 4. Feeling tired or having little energy: not at all 5. Poor appetite or overeating: nearly every day 6. Feeling bad about yourself - or that you are a failure or have let yourself or your family down: not at all 7. Trouble concentrating on things, such as reading the newspaper or watching television: several days 8. Moving or speaking so slowly that other people could have noticed. Or the opposite - being so fidgety or restless that you have been moving around a lot more than usual: not at all 9. Thoughts that you would be better off or of hurting yourself in some way: not at all Total score: 6 Depression Screening Interpretation: Positive Depression Screening Follow-up: Existing condition, In treatment and Follow-up Visit Requested Depression Screening Done: Yes 15570 - PHQ-9 Billing: Yes Source: Developed by Drs. Tyrel Núñez, Neil Bazzi and colleagues, with an educational rosendo from [employer]. Thrive Questionnaire Date Thrive assessed: 10/19/23 AUDIT C Alcohol Use Questionnaire (AUDIT-C) 1. How often do you have a drink containing alcohol?: Never Total Score: 0 Score Reviewed/Action Taken: No ANDREA-7 AMB Questionnaire ANDREA-7 Date ANDREA - 7 assessed: 10/19/23 Source: Developed by Drs. Tyrel Núñez, Neil Bazzi and colleagues, with an educational rosendo from [employer]. Review of Systems Const All systems reviewed & are unremarkable except as noted in HPI and below Card Denies chest pain at rest, Denies chest pain with activity, Denies edema, Denies irregular heart rhythm, Denies claudication, Denies dyspnea, Denies dyspnea on exertion, Denies orthopnea, Denies paroxysmal nocturnal dyspnea and Denies slow heart rate Resp Denies cough, Denies dyspnea and Denies dyspnea on exertion GI Denies abdominal pain, Denies change in bowel habits, Denies excessive flatus, Denies nausea and Denies vomiting Denies urinary hesitancy, Denies urinary incontinence and Denies urinary urgency Physical exam (Primary Care) Vital Signs: Last Vital Signs Pulse 68 03/20/24 09:14 BP 118/62 03/20/24 09:14 Pulse Ox 95 03/20/24 09:14 Oxygen Delivery Method Room Air 03/20/24 09:14 BMI result Body Mass Index 32.5 BMI Assessment/Plan discussion: High BMI High, discussed plan: lifestyle, weight reduction, dietary and physical activity Tobacco/Smoking Status: Tobacco use Status Tobacco use date assessed 10/19/23 03/20/24 09:17 Patient Tobacco Use Status Never used Tobacco 03/20/24 09:17 e-Cigarette/Vaping Use Never Used 03/20/24 09:17 PHQ-9: PHQ-9 Score PHQ-9: Total score 6 03/20/24 10:07 Depression Screening Interpretation: Positive Depression Screening Follow-up: Existing condition, In treatment and Follow-up Visit Requested Thrive Assessment: Date of Thrive Assessment Date Thrive assessed 10/19/23 03/20/24 09:17 HENMT Head: Yes normal to inspection, Yes normocephalic and Yes atraumatic Ears: external ears normal Eyes General: appearance normal, both eyes and all related structures Eyelids: Yes eyelids normal Conjunctivae: conjunctivae normal Neck Neck: Yes normal visual inspection and Yes supple Resp Effort & Inspection: normal respiratory effort Auscultation: clear to auscultation bilaterally Cardio Jugular venous distension: no JVD Rate: regular rate Rhythm: regular rhythm Heart sounds: S1 normal heart sound present and S2 normal heart sound present GI Inspection: Yes normal to inspection Palpation (GI): Soft to palpation and nontender Auscultation: normal bowel sounds Skin General skin exam: no rashes or lesions noted Neuro General: no focal motor deficits Extrem General: Yes full ROM Psych Appearance: grossly normal Assessment and Plan Assessment & Plan (1) Physical exam: Code(s): Z00.00 - Encounter for general adult medical examination without abnormal findin gs Plan: Repeat in a year. (2) Mild recurrent major depression: Code(s): F33.0 - Major depressive disorder, recurrent, mild Plan: Continue bupropion. Follow-up visit requested. Coding Level of Care Code Est Pt Prev Care 18-39y([id number]) Diagnoses Physical exam Z00.00 Mild recurrent major depression F33.0 Time Spent (min) 30
== END 2024-03-20 09:37 | disposition home or self-care (01) ==
PROVIDERS: PCP Internal Medicine; Visit Provider Internal Medicine
DX: Z00.00 Encounter for general adult medical examination without abnormal findings (principal); F33.0 Major depressive disorder, recurrent, mild
CPT/HCPCS: 99395

== ENCOUNTER 2024-09-20 10:39 | Outpatient (AMB) | payer OTHER, SELFPAY ==
--- NOTE | 2024-09-20 10:41 | A.OFFPC_ITS ---
Vital Signs 09/20/24 10:45 Height 5 ft 11 in Weight 239 lb BMI 33.3 BP 122/80 Blood Pressure Location Lt brachial Position Sitting Intake Visit Reasons: depression Intake Note: Patient here for a follow up Depression Laboratory Monitor Required: Yes Laboratory Monitor Language: Compatibility Test Engineer Name: Chelsea Conrad MD Information Interpreted: non-clinical & clinical Accompanied by: Mother Allergies Sulfa (Sulfonamide Antibiotics) Allergy (Intermediate, Verified 09/20/24 10:53) swollen Medication List - Last Reconciled 09/20/24 by Chelsea Conrad MD bupropion HCl XL 150 mg PO QAM 90 days cholecalciferol (vitamin D3) 50 mcg PO DAILY 90 days Tobacco use date assessed: 09/20/24 Dental Screening Dental Screen Date: 09/20/24 Did you have a dental visit in the last 12 months?: Yes Did you have a dental problem in the last 6 months where you did not have access to dental care?: No Was dental information given to patient?: Patient has dentist HPI HPI Comments History of Present Illness Details The patient is a 34-year-old male presenting with concerns related to diet, exercise, and vitamin testing. The patient is overweight and interested in weight management strategies. He reports an increased consumption of sweets, specifically Pop-Tarts, cookies, and other sugary foods. The patient acknowledges weather limitations that affect his ability to engage in outdoor walking, which currently limits his physical activity. He has no history of smoking or alcohol use and denies depressive symptoms. The patient previously underwent laboratory tests in November of last year and plans for repeat testing in March were discussed, focusing on potential vitamin deficiencies, cholesterol, glucose, renal, and liver function. Currently, the patient is on bupropion, which he reports is functioning well, though the specific condition treated was not explicitly mentioned. [facility] Medical History Obese Family history of diabetes mellitus Hypovitaminosis D Asperger syndrome Surgical History No pertinent past surgical history Family History Father Diabetes Mother No problems noted. Maternal Grandmother Cancer Maternal Grandfather Colon cancer Maternal Uncle Stomach cancer Maternal Uncle Colon cancer Paternal Uncle No problems noted. Family/Other FH: mental illness Social History Housing: Apartment Alcohol intake: never Patient Tobacco Use Status: Never used Tobacco e-Cigarette/Vaping Use: Never Used Second Hand Smoke Exposure: No service: No Current occupational status: unemployed Cognitive needs: No Hearing needs: No Vision needs: Yes Questionnaire PHQ-9 Over the last 2 weeks, how often have you been bothered by any of the following problems? 1. Little interest or pleasure in doing things: not at all 2. Feeling down, depressed, or hopeless: not at all 3. Trouble falling or staying asleep, or sleeping too much: not at all 4. Feeling tired or having little energy: not at all 5. Poor appetite or overeating: not at all 6. Feeling bad about yourself - or that you are a failure or have let yourself or your family down: not at all 7. Trouble concentrating on things, such as reading the newspaper or watching television: not at all 8. Moving or speaking so slowly that other people could have noticed. Or the opposite - being so fidgety or restless that you have been moving around a lot more than usual: not at all 9. Thoughts that you would be better off or of hurting yourself in some way: not at all Total score: 0 Depression Screening Interpretation: Negative Depression Screening Done: Yes 13972 - PHQ-9 Billing: Yes Source: Developed by Drs. Tyrel Núñez, Abbi Ruiz, Neil Verde and colleagues, with an educational rosendo from [employer]. Thrive Questionnaire Date Thrive assessed: 09/20/24 I am a: Patient What is your living situation today?: I have a steady place to live Within the past 12 months, did the food you bought not last and you didn't have the money to get more?: Never true Within the past 12 months, did you worry whether your food would run out before you got money to buy more?: Never true Do you have trouble paying for medicines?: No Do you have trouble getting transportation to medical appointments?: No Do you have trouble paying your heating and electricity bill?: No Do you have trouble taking care of your child, family member or friend?: No Do you have trouble with day-to-day activities such as bathing, preparing meals, shopping, managing finances, etc.?: No Are you currently unemployed and looking for a job?: No Are you interested in more education?: No Please select the resources that you would like help with: None Currently or been in a relationship where the following occur: No concerns reported THRIVE Score: 0 AUDIT C Alcohol Use Questionnaire (AUDIT-C) 1. How often do you have a drink containing alcohol?: Never 3. How often do you have six or more drinks on one occasion?: Never Total Score: 0 Score Reviewed/Action Taken: No ANDREA-7 AMB Questionnaire ANDREA-7 Date ANDREA - 7 assessed: 09/20/24 Feeling nervous, anxious, or on edge: 0 = Not at all Not being able to stop or control worryin = Not at all Worrying too much about different things: 0 = Not at all Trouble relaxin = Not at all Being so restless that it is hard to sit still: 0 = Not at all Becoming easily annoyed or irritable: 0 = Not at all Feeling afraid as if something awful might happen: 0 = Not at all Total ANDREA-7 score (0-4 normal; 5-9 mild; 10-14 moderate; 15-21 severe): 0 Source: Developed by Drs. Tyrel Núñez, Abbi Ruiz, Neil Verde and colleagues, with an educational rosendo from [employer]. ANDREA-7 Assessment Billing ANDREA-7 Assessment Tool: ANDREA-7 Assessment 89094 Review of Systems Const All systems reviewed & are unremarkable except as noted in HPI and below Card Denies chest pain at rest, Denies chest pain with activity, Denies edema, Denies irregular heart rhythm, Denies claudication, Denies dyspnea, Denies dyspnea on exertion, Denies orthopnea, Denies paroxysmal nocturnal dyspnea and Denies slow heart rate Resp Denies cough, Denies dyspnea and Denies dyspnea on exertion GI Denies abdominal pain, Denies change in bowel habits, Denies excessive flatus, Denies nausea and Denies vomiting Denies urinary hesitancy, Denies urinary incontinence and Denies urinary urgency Physical exam (Primary Care) Vital Signs: Last Vital Signs BP 122/80 09/20/24 10:45 BMI result Body Mass Index 33.3 BMI Assessment/Plan discussion: High BMI High, discussed plan: lifestyle, weight reduction, dietary and physical activity Tobacco/Smoking Status: Tobacco use Status Tobacco use date assessed 09/20/24 09/20/24 10:49 Patient Tobacco Use Status Never used Tobacco 09/20/24 10:43 e-Cigarette/Vaping Use Never Used 09/20/24 10:43 PHQ-9: PHQ-9 Score PHQ-9: Total score 0 09/20/24 11:18 Depression Screening Interpretation: Negative Thrive Assessment: Date of Thrive Assessment Date Thrive assessed 09/20/24 09/20/24 10:49 Currently or been in a relationship where the following occur: No concerns reported Resp Effort & Inspection: normal respiratory effort Auscultation: clear to auscultation bilaterally Cardio Jugular venous distension: no JVD Rate: regular rate Rhythm: regular rhythm Heart sounds: S1 normal heart sound present and S2 normal heart sound present Extrem General: Yes full ROM Office Procedures Flu Questionnaire Does the patient have a severe egg allergy?: No Immunizations Fluarix Triv [id number] (PF) 45 mcg (15 mcg x 3)/0.5 mL IM syringe Performing Provider: Chelsea Conrad MD [facility] Documented (not given) by: ARACELI Andrade on 09/20/24 11:18 Reason Not Given: Not Given Coding Level of Care Code Est Pt Level 3 (06972) Complex EM visit Add On G2211 Diagnoses Mild recurrent major depression F33.0 Obesity (BMI 30.0-34.9) E66.9 Hypovitaminosis D E55.9 Additional Codes ANDREA-7 Assessment Billing - ANDREA-7 Assessment Tool: ANDREA-7 Assessment 74961 ([id number]) PHQ-9 - 55424 - PHQ-9 Billing: Yes ([id number]) Time Spent (min) 19 Assessment & Plan Assessment & Plan (1) Mild recurrent major depression: Code(s): F33.0 - Major depressive disorder, recurrent, mild Category: Medical (2) Obesity (BMI 30.0-34.9): Code(s): E66.9 - Obesity, unspecified Category: Medical (3) Hypovitaminosis D: Code(s): E55.9 - Vitamin D deficiency, unspecified Category: Medical Plan - Continue current bupropion regimen, with monitoring for efficacy and side effects. - Plan for laboratory testing in March, including vitamin levels, cholesterol, glucose, renal and liver function. - Advise dietary modifications, focusing on reducing sugary food intake and increasing intake of protein and vegetables. - Encourage regular physical activity as weather permits, to aid in weight reduc tion. Patient was informed and verbally consented to the use of an ambient scribe for clinic note documentation during this visit. During the discussion, we reviewed the patient?s dietary habits and the impact of current nutritional intake on his weight. The importance of reducing sugar consumption was emphasized, specifically advising against Pop-Tarts and similar snacks. I outlined the benefits of incorporating protein and vegetables into meals for better weight management. We addressed exercise challenges due to weather and planned for the patient to increase physical activity when possible. Laboratory tests are scheduled for March to reassess the patient's vitamin levels and other health markers, with a follow-up to discuss the results and next steps. We discussed the continuation of bupropion and the patient reported satisfaction with its current efficacy. Orders: Orders Lipid Panel 6 Months E78.5 - Hyperlipidemia, unspecified Vitamin D 25-OH Total 6 Months E55.9 - Vitamin D deficiency, unspecified Comprehensive [place]. Panel Fast 6 Months E66.9 - Obesity, unspecified Thyroid Stimulating Hormone 6 Months E66.9 - Obesity, unspecified Influenza [id number] Immunization Today Z23 - Encounter for immunization Patient Instructions: - Minimize consumption of sweets and sugary snacks. - Increase physical activity by walking regularly, as weather conditions allow. - Focus on a diet rich in proteins and vegetables. - Continue current bupropion medication. - Return for laboratory testing and follow-up in March.
[2024-09-20 10:45] VITALS: BP 122/80; BMI 33.3
== END 2024-09-20 11:00 | disposition home or self-care (01) ==
PROVIDERS: PCP Internal Medicine; Visit Provider Internal Medicine
DX: F33.0 Major depressive disorder, recurrent, mild (principal); E66.9 Obesity, unspecified; E55.9 Vitamin D deficiency, unspecified; Z68.33 Body mass index [BMI] 33.0-33.9, adult

== ENCOUNTER → 2024-09-20 10:39 | Outpatient (BNVA) | payer OTHER, SELFPAY | PROVIDERS: PCP Internal Medicine; Visit Provider Internal Medicine | DX: F32.A Depression, unspecified (principal); F33.0 Major depressive disorder, recurrent, mild; E66.9 Obesity, unspecified; E55.9 Vitamin D deficiency, unspecified; E78.5 Hyperlipidemia, unspecified | CPT/HCPCS: 96127; 99212 ==

== ENCOUNTER 2025-01-30 09:33 | Outpatient (REF) | payer OTHER, SELFPAY ==
[2025-01-30 11:12] LABS: Alanine Aminotransferase 43 U/L (0-40); Albumin Level 4.3 g/dL (3.5-5.0); Alkaline Phosphatase 74 U/L (39-117); Anion Gap 11 (12-20); Aspartate Amino Transferase 25 U/L (5-37); Bilirubin Total 0.6 mg/dL (0.0-1.0); Blood Urea Nitrogen 12 mg/dL (9-16); Calcium 9.5 mg/dL (8.4-10.2); Carbon Dioxide 26 mmol/L (22-29); Chloride 107 mmol/L (96-108); Cholesterol 177 mg/dL (<200); Estimated Glomerular Filt Rate > 60; Glucose Fasting 92 mg/dL (60-99); HDL Cholesterol 37 mg/dL (>40); LDL Cholesterol Calculated 122 mg/dL (<100); Potassium 4.1 mmol/L (3.3-5.1); Sodium 140 mmol/L (135-145); Thyroid Stimulating Hormone 1.08 uIU/mL (0.32-4.0); Total Protein 7.4 g/dL (6.5-8.0); Triglycerides 92 mg/dL (<150); Vitamin D 25-OH Total 33.7 ng/mL (>30)
== END 2025-01-30 09:34 | disposition home or self-care (01) ==
LOC: HO.LAB 09:33
PROVIDERS: PCP Internal Medicine; Visit Provider Internal Medicine
DX: E66.9 Obesity, unspecified (principal); E55.9 Vitamin D deficiency, unspecified; E78.5 Hyperlipidemia, unspecified
CPT/HCPCS: 36415; 80053; 80061; 82306; 84443

== ENCOUNTER 2025-03-26 10:10 | Outpatient (AMB) | payer OTHER, SELFPAY ==
[2025-03-26 10:14] VITALS: BP 110/82; BMI 32.6
--- NOTE | 2025-03-26 10:14 | MHC.PC.OV ---
Vital Signs 03/26/25 10:14 Height 5 ft 11 in Weight 234 lb BMI 32.6 BP 110/82 Blood Pressure Location Lt brachial Position Sitting Intake Visit Reasons: annual exam Intake Note: Patient here for an annual physical exam Cupola Liner Required: No Cupola Liner Name: Chelsea Conrad MD Information Interpreted: non-clinical & clinical Accompanied by: Mother Allergies Sulfa (Sulfonamide Antibiotics) Allergy (Intermediate, Verified 03/26/25 10:25) swollen Medication List - Last Reconciled 03/26/25 by Chelsea Conrad MD bupropion HCl XL 150 mg PO QAM 90 days cholecalciferol (vitamin D3) 50 mcg PO DAILY 90 days Tobacco use date assessed: 09/20/24 Dental Screening Dental Screen Date: 09/20/24 Did you have a dental visit in the last 12 months?: Yes Did you have a dental problem in the last 6 months where you did not have access to dental care?: No Was dental information given to patient?: Patient has dentist HPI HPI Comments History of Present Illness Details The patient is a 34-year-old male presenting for a routine check-up and management of chronic conditions. The patient has a history of slight depression, for which he is currently under psychiatric care and taking bupropion 150 mg. His depression is well-controlled, as indicated by a PHQ-9 score of 2. The patient reports an allergy to sulfa drugs. The patient has no history of surgeries. Family history is significant for diabetes in the father and low vitamin D levels in the mother. The patient does not smoke or consume alcohol. Recent laboratory results from January indicate normal renal function and blood glucose levels at 92 mg/dL. However, one liver enzyme was slightly elevated at 43 U/L, suggesting possible hepatic steatosis. Cholesterol levels were reported at 177 mg/dL, with LDL at 122 mg/dL and HDL slightly low. Thyroid function and vitamin D levels were normal. [facility] Medical History (Updated 03/26/25 @ 10:38 by Chelsea Conrad MD) Obese Family history of diabetes mellitus Hypovitaminosis D Asperger syndrome Surgical History No pertinent past surgical history Family History Father Diabetes Mother No problems noted. Maternal Grandmother Cancer Maternal Grandfather Colon cancer Maternal Uncle Stomach cancer Maternal Uncle Colon cancer Paternal Uncle No problems noted. Family/Other FH: mental illness Social History Housing: Apartment Alcohol intake: never Patient Tobacco Use Status: Never used Tobacco e-Cigarette/Vaping Use: Never Used Second Hand Smoke Exposure: No service: No Current occupational status: unemployed Cognitive needs: No Hearing needs: No Vision needs: Yes Questionnaire PHQ-9 Over the last 2 weeks, how often have you been bothered by any of the following problems? 1. Little interest or pleasure in doing things: several days 2. Feeling down, depressed, or hopeless: not at all 3. Trouble falling or staying asleep, or sleeping too much: not at all 4. Feeling tired or having little energy: several days 5. Poor appetite or overeating: not at all 6. Feeling bad about yourself - or that you are a failure or have let yourself or your family down: not at all 7. Trouble concentrating on things, such as reading the newspaper or watching television: not at all 8. Moving or speaking so slowly that other people could have noticed. Or the opposite - being so fidgety or restless that you have been moving around a lot more than usual: not at all 9. Thoughts that you would be better off or of hurting yourself in some way: not at all Total score: 2 Depression Screening Interpretation: Positive Depression Screening Follow-up: Existing condition, In treatment, Community Mental Health Worker F/U and Follow-up Visit Requested Depression Screening Done: Yes 29349 - PHQ-9 Billing: Yes Source: Developed by Drs. Tyrel Núñez, Abbi Ruiz, Neil Verde and colleagues, with an educational rosendo from [employer]. Thrive Questionnaire Date Thrive assessed: 09/20/24 I am a: Patient What is your living situation today?: I have a steady place to live Within the past 12 months, did the food you bought not last and you didn't have the money to get more?: Never true Within the past 12 months, did you worry whether your food would run out before you got money to buy more?: Never true Do you have trouble paying for medicines?: No Do you have trouble getting transportation to medical appointments?: No Do you have trouble paying your heating and electricity bill?: No Do you have trouble taking care of your child, family member or friend?: No Do you have trouble with day-to-day activities such as bathing, preparing meals, shopping, managing finances, etc.?: Yes Are you currently unemployed and looking for a job?: Yes Are you interested in more education?: No Please select the resources that you would like help with: None Currently or been in a relationship where the following occur: I choose not to answer THRIVE Score: 0 AUDIT C Alcohol Use Questionnaire (AUDIT-C) 1. How often do you have a drink containing alcohol?: Never Total Score: 0 Score Reviewed/Action Taken: No ANDREA-7 AMB Questionnaire ANDREA-7 Date ANDREA - 7 assessed: 09/20/24 Feeling nervous, anxious, or on edge: 1 = Several days Not being able to stop or control worryin = Several days Worrying too much about different things: 0 = Not at all Trouble relaxin = Not at all Being so restless that it is hard to sit still: 1 = Several days Becoming easily annoyed or irritable: 1 = Several days Feeling afraid as if something awful might happen: 0 = Not at all Total ANDREA-7 score (0-4 normal; 5-9 mild; 10-14 moderate; 15-21 severe): 4 Source: Developed by Drs. Tyrel Núñez, Abbi Ruiz, Neil Verde and colleagues, with an educational rosendo from [employer]. ANDREA-7 Assessment Billing ANDREA-7 Assessment Tool: ANDREA-7 Assessment 32001 Review of Systems Const All systems reviewed & are unremarkable except as noted in HPI and below Card Denies chest pain at rest, Denies chest pain with activity, Denies edema, Denies irregular heart rhythm, Denies claudication, Denies dyspnea, Denies dyspnea on exertion, Denies orthopnea, Denies paroxysmal nocturnal dyspnea and Denies slow heart rate Resp Denies cough, Denies dyspnea and Denies dyspnea on exertion GI Denies abdominal pain, Denies change in bowel habits, Denies excessive flatus, Denies nausea and Denies vomiting Denies urinary hesitancy, Denies urinary incontinence and Denies urinary urgency Musc Denies abnormal gait, Denies atrophy, Denies deformity and Denies limited range of motion Skin/Breast Denies bleeding lesions, Denies changing lesions and Denies rash Neuro Denies abnormal gait and Denies lack of coordination Physical exam (Primary Care) Vital Signs: Last Vital Signs BP 110/82 03/26/25 10:14 BMI result Body Mass Index 32.6 BMI Assessment/Plan discussion: High BMI High, discussed plan: lifestyle, weight reduction, dietary and physical activity Tobacco/Smoking Status: Tobacco use Status Tobacco use date assessed 09/20/24 03/26/25 10:18 Patient Tobacco Use Status Never used Tobacco 03/26/25 10:18 e-Cigarette/Vaping Use Never Used 03/26/25 10:18 PHQ-9: PHQ-9 Score PHQ-9: Total score 2 03/26/25 10:18 Depression Screening Interpretation: Positive Depression Screening Follow-up: Existing condition, In treatment, Community Mental Health Worker F/U and Follow-up Visit Requested Thrive Assessment: Date of Thrive Assessment Date Thrive assessed 09/20/24 03/26/25 10:18 Currently or been in a relationship where the following occur: I choose not to answer HENMT Head: Yes normal to inspection, Yes normocephalic and Yes atraumatic Ears: external ears normal Eyes General: appearance normal, both eyes and all related structures Eyelids: Yes eyelids normal Conjunctivae: conjunctivae normal Neck Neck: Yes normal visual inspection and Yes supple Resp Effort & Inspection: normal respiratory effort Auscultation: clear to auscultation bilaterally Cardio Jugular venous distension: no JVD Rate: regular rate Rhythm: regular rhythm Heart sounds: S1 normal heart sound present and S2 normal heart sound present GI Inspection: Yes normal to inspection Palpation (GI): Soft to palpation and nontender Auscultation: normal bowel sounds Skin General skin exam: no rashes or lesions noted Neuro General: no focal motor deficits Extrem General: Yes full ROM Psych Appearance: grossly normal Coding Level of Care Code Est Pt Level 3 (63001) Est Pt Prev Care 18-39y(55656) Diagnoses Physical exam Z00.00 Mild recurrent major depression F33.0 Seasonal allergic rhinitis due to pollen J30.1 Allergic rhinitis trigger: pollen Allergic rhinitis seasonality: seasonal Additional Codes PHQ-9 - 56652 - PHQ-9 Billing: Yes ([id number]) ANDREA-7 Assessment Billing - ANDREA-7 Assessment Tool: ANDREA-7 Assessment 78513 ([id number]) Time Spent (min) 32 Assessment & Plan Assessment & Plan (1) Physical exam: Code(s): Z00.00 - Encounter for general adult medical examination without abnormal findings Category: Medical (2) Mild recurrent major depression: Code(s): F33.0 - Major depressive disorder, recurrent, mild Category: Medical (3) Allergic rhinitis: Code(s): J30.9 - Allergic rhinitis, unspecified Category: Medical Qualifiers: Allergic rhinitis trigger: pollen Allergic rhinitis seasonality: seasonal Qualified Code(s): J30.1 - Allergic rhinitis due to pollen Plan The patient will continue with psychiatric care and bupropion for depression, which is currently well-controlled. Dietary modifications are recommended to improve HDL cholesterol levels, although no medication is required at this time for dyslipidemia. The patient is advised to monitor liver enzyme levels due to the slight elevation, potentially indicative of hepatic steatosis. Allergic rhinitis will be managed with medication prescribed to the pharmacy. Patient was informed and verbally consented to the use of an ambient scribe for clinic note documentation during this visit. Medications: New cetirizine (All Day Allergy (cetirizine)) 10 mg PO DAILY PRN 90 tabs 0RF allergy symptoms 90 days
== END 2025-03-26 10:37 | disposition home or self-care (01) ==
LOC: HO.HMCH 10:11
PROVIDERS: PCP Internal Medicine; Visit Provider Internal Medicine
DX: Z00.00 Encounter for general adult medical examination without abnormal findings (principal); F33.0 Major depressive disorder, recurrent, mild; J30.1 Allergic rhinitis due to pollen

== ENCOUNTER → 2025-03-26 10:10 | Outpatient (BNVA) | payer OTHER, SELFPAY | PROVIDERS: PCP Internal Medicine; Visit Provider Internal Medicine | DX: Z00.00 Encounter for general adult medical examination without abnormal findings (principal); F33.0 Major depressive disorder, recurrent, mild; J30.1 Allergic rhinitis due to pollen; Z13.31 Encounter for screening for depression | CPT/HCPCS: 96127; 99212 ==